=== PATIENT | male | born 2000 ===

== ENCOUNTER 2024-01-21 07:09 | Outpatient (REF) | payer OTHER, SELFPAY ==
--- NOTE | ~2024-01-21 | US_ITS ---
EXAMINATION: US SCROTUM CLINICAL INFORMATION: Left testicular pain. COMPARISON: None available. TECHNIQUE: A sonogram of the scrotum was performed assessing sweet-scale appearance and color Doppler flow. Spectral Doppler analysis of the arterial and venous flow were performed in the testes bilaterally. FINDINGS: RIGHT: Right testicle measures 4.3 x 1.8 x 3.1 cm, volume 12.6 mL. No focal testicular parenchymal lesions are visualized. Spectral Doppler analysis of the arterial and venous flow is normal in the right testis. Right epididymal head is normal in size. No right hydrocele or varicocele is seen. Right epididymal Doppler flow is normal. LEFT: Left testicle measures 4.1 x 2.0 x 2.8 cm, volume 12.0 mL. No focal testicular parenchymal lesions are visualized. Spectral Doppler analysis of the arterial and venous flow is normal in the left testis. Left epididymal head is normal in size. No left varicocele is seen. Trace left hydrocele Left epididymal Doppler flow is normal. US/US scrotum IMPRESSION: 1. Normal appearance of the bilateral testicles. 2. Trace left hydrocele. Electronically signed by: Lupillo Carroll MD 01/21/2024 07:05 PM EST
== END 2024-01-21 07:10 | disposition home or self-care (01) ==
LOC: HO.UMASIMG 07:09
PROVIDERS: Visit Provider Physician Assistant
DX: N50.819 Testicular pain, unspecified (principal)
CPT/HCPCS: 76870